=== PATIENT | male | born 1990 | race Caucasian/White ===

== ENCOUNTER 2020-05-13 14:14 | Outpatient (REF) | payer OTHER, SELFPAY | END 2020-05-13 14:15 | disposition home or self-care (01) | LOC: HO.HMGCLDS 14:14 | PROVIDERS: PCP Internal Medicine; Visit Provider Internal Medicine | DX: Z20.828 Contact with and (suspected) exposure to other viral communicable diseases (principal) | CPT/HCPCS: U0003 ==

== ENCOUNTER 2020-10-08 10:32 | Outpatient (REF) | payer SELFPAY ==
--- NOTE | ~2020-10-08 | US_ITS ---
EXAMINATION: US PELVIS, LIMITED/FOLLOW UP CLINICAL INFORMATION: Left groin hernia, question. COMPARISON: None TECHNIQUE: Limited imaging through left groin over palpable lump area was performed. FINDINGS: There is a rogel shaped large lymph node with internal echoes measuring 4.69 x 2.10 x 1.89 cm. It is approximately 0.47 cm deep to the skin and warrants a biopsy. There is no evidence of inguinal hernia. US/US pelvic limited IMPRESSION: Large complex echogenic rogel shaped atypical lymph node left groin. Warrants a biopsy. No additional lesions seen. There is no inguinal hernia.
== END 2020-10-08 10:33 | disposition home or self-care (01) ==
LOC: HO.HMGCX 10:32
PROVIDERS: Visit Provider Nurse Practitioner Family
DX: R10.2 Pelvic and perineal pain (principal); R10.30 Lower abdominal pain, unspecified
CPT/HCPCS: 76857

== ENCOUNTER 2020-11-21 09:03 | Outpatient (REF) | payer SELFPAY ==
[2020-11-21 10:57] LABS: Blood Urea Nitrogen 13 mg/dL (9-16); Estimated Glomerular Filt Rate > 60
== END 2020-11-21 09:04 | disposition home or self-care (01) ==
LOC: HO.LAB 09:03
PROVIDERS: PCP Internal Medicine; Visit Provider Surgery
DX: R59.0 Localized enlarged lymph nodes (principal)
CPT/HCPCS: 36415; 82565; 84520; 99202

== ENCOUNTER 2021-02-11 10:47 | Outpatient (REF) | payer OTHER, SELFPAY ==
[2021-02-11 14:15] LABS: Alanine Aminotransferase 22 U/L (0-40); Albumin Level 4.4 g/dL (3.5-5.0); Alkaline Phosphatase 71 U/L (39-117); Aspartate Amino Transferase 20 U/L (5-37); Bilirubin Direct 0.3 mg/dL (0.0-0.5); Bilirubin Total 0.8 mg/dL (0.0-1.0); Total Protein 7.2 g/dL (6.5-8.0)
== END 2021-02-11 10:48 | disposition home or self-care (01) ==
LOC: HO.HMGCLDS 10:47
PROVIDERS: PCP Internal Medicine; Visit Provider Podiatrist Foot Surgery
DX: B35.1 Tinea unguium (principal)
CPT/HCPCS: 36415; 80076

== ENCOUNTER 2021-03-03 08:57 | Outpatient (REF) | payer OTHER, SELFPAY ==
--- NOTE | ~2021-03-03 | CT_ITS ---
EXAMINATION: CT PELVIS WITH CONTRAST CLINICAL INFORMATION: Localized enlarged lymph nodes. COMPARISON: Ultrasound pelvis 10/08/2020 TECHNIQUE: Helical scanning was performed with submillimeter collimation through the pelvis with the use of oral contrast and during bolus intravenous injection of 100 mL of Omnipaque 350 intravenous contrast. Sagittal and coronal multiplanar 2-D reconstructions were obtained. This CT examination was performed using dose optimization techniques as appropriate, variously including the following: *Automated exposure control *Adjustment of mA and/or kV according to patient size (this includes techniques or standardized protocols for targeted exams where dose is matched to indication/reason for exam; i.e. extremities or head) *Use of iterative reconstruction technique DLP: 330 mGy-cm FINDINGS: PELVIS: There is scattered stool and gas seen in the colon without distention. No free fluid or pelvic mass seen. The bladder is nondistended. The prostate gland is mildly enlarged. There is no free fluid. There are several small lymph nodes visualized. The largest left inguinal lymph node measures 1.6 and 1.5 cm adjacent to each other. These measured jointly as 4.7 cm on the previous ultrasound exam. They have a normal appearance. OSSEOUS STRUCTURES: No lytic or sclerotic process seen. CT/CT pelvis w con IMPRESSION: No abnormal lymph nodes seen. Lymph nodes seen on the ultrasound were measured as 2 lymph nodes together.
[2021-03-03] MEDS: iohexoL 350 MG/ML 100 ML INFUS..BTL IV (09:35)
== END 2021-03-03 08:58 | disposition home or self-care (01) ==
LOC: HO.CT 08:57
PROVIDERS: PCP Internal Medicine; Visit Provider Surgery
DX: R59.0 Localized enlarged lymph nodes (principal)
CPT/HCPCS: 72193; Q9967

== ENCOUNTER → 2021-03-06 10:37 | Outpatient (BNVA) | payer OTHER, SELFPAY | PROVIDERS: PCP Internal Medicine; Visit Provider Surgery | DX: R59.0 Localized enlarged lymph nodes (principal) | CPT/HCPCS: 99212 ==

== ENCOUNTER 2021-06-12 07:26 | Outpatient (REF) | payer OTHER, SELFPAY ==
--- NOTE | ~2021-06-12 | MR_ITS ---
EXAMINATION: MR BRAIN WITHOUT CONTRAST CLINICAL INFORMATION: Chronic brain fog. Loss of thought and focus. Fatigue. COMPARISON: None. TECHNIQUE: Multiplanar, multisequence imaging of the brain was performed without contrast. FINDINGS: No diffusion abnormalities are identified to suggest an acute or subacute infarct. The ventricles are normal in size. No mass effect or midline shift is seen. No brain parenchymal signal abnormality is noted. No extra-axial fluid collections are seen. The brainstem and cerebellum are normal. The gradient refocused acquisition demonstrates no pathologic magnetic susceptibility artifact to indicate underlying acute or chronic blood products. The craniovertebral junction, marrow signal, and midline structures are normal. The major intracranial flow voids at the level of the [place] are preserved. The dural venous sinus flow voids are maintained. The mastoid air cells and paranasal sinuses are well aerated. MR/MR head/brain wo con IMPRESSION: No acute process. Normal MRI of the brain.
== END 2021-06-12 07:27 | disposition home or self-care (01) ==
LOC: HO.MRI 07:26
PROVIDERS: PCP Internal Medicine; Visit Provider Psychiatry & Neurology Neurology
DX: G37.9 Demyelinating disease of central nervous system, unspecified (principal)
CPT/HCPCS: 70551

== ENCOUNTER 2025-01-31 14:16 | Outpatient (AMB) | payer BC, SELFPAY ==
--- NOTE | 2025-01-31 14:18 | A.OFFVIS_ITS ---
Intake Visit Reasons: 6 mnts ADD Allergies No Known Allergies Allergy (Verified 01/31/25 14:18) Medication List - Last Reconciled 01/31/25 by Guerline Diallo CNP dextroamphetamine-amphetamine 30 mg 1 tab PO BID escitalopram oxalate 20 mg PO DAILY 90 days HPI Comments Details: He was doing okay. 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 Adderall helped with energy, ability to focus and stay on task. No work performance issues. If he does not take Adderall, he can feel the difference. Mood was okay until about 1 month ago, more down at times, no specific triggers. Low motivation. Stress was better. Around 2016, he started with fatigue and brain fog where he loses train of thought, spaces out at times, and cannot find the right words, and does not think his brain works properly. Falls asleep easily but sleep is disrupted as he wakes a few times. He did fairly well in his freshman year in high school and got through college without much problems. [facility] Medical History (Updated 01/31/25 @ 14:21 by Guerline Diallo CNP) Anxiety and depression Demyelinating disease ADD (attention deficit disorder) Depression, major, recurrent Surgical History [place] teeth extracted Family History Father CVD (cardiovascular disease) Myocardial infarction Depression Mother CVD (cardiovascular disease) Myocardial infarction HTN (hypertension) Brother No problems noted. Brother No problems noted. Brother No problems noted. Social History Alcohol intake: current Alcohol intake frequency: holidays/special occasions only Review of Systems Const Denies chills, Denies daytime sleepiness, Denies difficulty sleeping, Denies fatigue, Denies fever(s), Denies frequent falls, Denies headache(s), Denies increased appetite, Denies poor appetite, Denies snoring, Denies weakness, Denies weight gain and Denies weight loss Eyes Denies loss of vision ENT Denies vertigo, Denies dizziness, Denies headache(s) and Denies neck pain Card Denies chest pain at rest, Denies chest pain with activity, Denies syncope, Denies leg edema, Denies palpitations, Denies dyspnea and Denies dyspnea on exertion Resp Denies cough, Denies dyspnea, Denies dyspnea on exertion and Denies snoring GI Denies abdominal pain, Denies constipation, Denies heartburn, Denies diarrhea and Denies nausea Denies urinary frequency, Denies urinary incontinence and Denies urinary urgency Musc Denies abnormal gait, Denies back pain, Denies myalgias, Denies arthralgias, Denies neck pain, Denies numbness and Denies tingling Neuro Denies abnormal gait, Denies vertigo, Denies dizziness, Denies syncope, Denies frequent falls, Denies headache(s), Denies lack of coordination, Denies loss of vision, Reports memory loss, Denies numbness, Denies Other visual disturbances, Denies restless legs, Denies seizure-like activity, Denies tingling, Denies paresthesias, Denies tremor(s) and Denies weakness Psych Reports anxiety, Reports depression, Denies auditory hallucinations, Reports memory loss and Denies visual hallucinations Endo Denies fatigue and Denies palpitations Physical Exam Const Other: General Appearance:? normal, in no acute distress. Heart:? S1, S2 normal, no murmurs. Lungs:? clear anteriorly and posteriorly. Musculoskeletal:? normal. Extremities:? no edema. Psych:? alert, oriented, cognitive function intact, cooperative with exam. Neuro Other: Abnormal Neurological Findings:?none.? Mental Status: alert and oriented X 3. Normal attention, orientation, memory, and affect. Cranial Nerves: Pupils are equal, round, and reactive to light. External ocular muscles are intact. Visual cao are full, no ptosis. Face is symmetrical, no facial weakness or droop. Facial sensations are normal. Tongue protrudes in midline. Palate elevates symmetrically. Shoulder shrugging is normal Motor Examination: Normal muscle tone, bulk and strength. No atrophy or fasciculations. No drift of the extended upper extremities. DTR 2+. Plantars are flexor. Straight Leg [place] degrees. Sensory Exam: Normal light touch, temperature, pinprick, vibration, and joint- position sensations. Rhomberg sign is absent. Coordination: No ataxia. No titubation. Ygrvzf-lh-kisg, xfmm-pvux-unlo test, and rapid alternating movements were normal. Gait Exam: Within normal limits. Cerebellar Signs: Jseutv-df-rgtx and wkow-[id number]-kamq is normal. No dysdiadochokinesia. Extrapyramidal System: No tremor, rigidity with normal facial expressions. No bradykinesia. No bradyphrenia. Normal arm swing and posture. No propulsion or retropulsion. Speech: Normal. No dysphasia or dysarthria. Assessment & Plan Assessment & Plan (1) ADD (attention deficit disorder): Code(s): F98.8 - Other specified behavioral and emotional disorders with onset usually occurring in childhood and adolescence Category: Medical Qualifiers: Attention deficit type: unspecified type Qualified Code(s): F98.8 - Other specified behavioral and emotional disorders with onset usually occurring in childhood and adolescence Plan: Continue Adderall 30mg 1 tablet twice a day (2) Anxiety and depression: Code(s): F41.9 - Anxiety disorder, unspecified; F32.A - Depression, unspecified Category: Medical Plan: Stop escitalopram 20mg 1 tablet daily. Start bupropion 150mg 1 tablet daily. Plan Meds tried: paroxetine, sertraline, fluoxetine, citalopram, escitalopram Medications: New bupropion HCl SR (Wellbutrin SR) 150 mg PO DAILY 30 tabs 1RF 30 days dextroamphetamine-amphetamine 30 mg (Adderall) Partial Fill upon patient request. 30 mg PO BID 60 tabs 0RF 30 days Discontinued escitalopram oxalate Discontinued Reason: Doctor's Order 20 mg PO DAILY 90 days 90 tabs 1RF dextroamphetamine-amphetamine 30 mg Discontinued Reason: Order 1 tab PO BID 0RF Coding Level of Care Code Est Pt Level 4 (51195) Diagnoses Attention deficit disorder, unspecified type F98.8 Attention deficit type: unspecified type Anxiety and depression F41.9; F32.A
== END 2025-01-31 14:34 | disposition home or self-care (01) ==
LOC: HO.HSM 14:17
PROVIDERS: PCP Internal Medicine; Referring Provider Internal Medicine; Visit Provider Registered Nurse
DX: F98.8 Other specified behavioral and emotional disorders with onset usually occurring in childhood and adolescence (principal); F41.9 Anxiety disorder, unspecified; F32.A Depression, unspecified
CPT/HCPCS: 99214

== ENCOUNTER 2025-03-14 14:44 | Outpatient (AMB) | payer BC, SELFPAY ==
--- NOTE | 2025-03-14 14:49 | MHC.OFFVIS ---
Intake Visit Reasons: 6 weeks ADD, depression Allergies No Known Allergies Allergy (Verified 03/14/25 14:50) Medication List - Last Reconciled 03/14/25 by Guerline Diallo CNP bupropion HCl SR (Wellbutrin SR) 150 mg PO DAILY 30 days dextroamphetamine-amphetamine 30 mg (Adderall) 30 mg PO BID 30 days HPI Comments Details: He tried Wellbutrin for about a month but stopped medication about 1.5 weeks ago when refill had a bad smell to it. He felt a bit more tired with medication, otherwise he has not noticed any difference and did not think medication helped. Mood was stable, no SI/HI. Stress was about the same. Sleep was okay. 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 Adderall helped with energy, ability to focus and stay on task. No work performance issues. If he does not take Adderall, he can feel the difference. Around 2016, he started with fatigue and brain fog where he loses train of thought, spaces out at times, and cannot find the right words, and does not think his brain works properly. Falls asleep easily but sleep is disrupted as he wakes a few times. He did fairly well in his freshman year in high school and got through college without much problems. [facility] Medical History (Updated 01/31/25 @ 14:21 by Guerline Diallo CNP) Anxiety and depression Demyelinating disease ADD (attention deficit disorder) Depression, major, recurrent Surgical History [place] teeth extracted Family History Father CVD (cardiovascular disease) Myocardial infarction Depression Mother CVD (cardiovascular disease) Myocardial infarction HTN (hypertension) Brother No problems noted. Brother No problems noted. Brother No problems noted. Social History Alcohol intake: current Alcohol intake frequency: holidays/special occasions only Review of Systems Const Denies chills, Denies daytime sleepiness, Denies difficulty sleeping, Denies fatigue, Denies fever(s), Denies frequent falls, Denies headache(s), Denies increased appetite, Denies poor appetite, Denies snoring, Denies weakness, Denies weight gain and Denies weight loss Eyes Denies loss of vision ENT Denies vertigo, Denies dizziness, Denies headache(s) and Denies neck pain Card Denies chest pain at rest, Denies chest pain with activity, Denies syncope, Denies leg edema, Denies palpitations, Denies dyspnea and Denies dyspnea on exertion Resp Denies cough, Denies dyspnea, Denies dyspnea on exertion and Denies snoring GI Denies abdominal pain, Denies constipation, Denies heartburn, Denies diarrhea and Denies nausea Denies urinary frequency, Denies urinary incontinence and Denies urinary urgency Musc Denies abnormal gait, Denies back pain, Denies myalgias, Denies arthralgias, Denies neck pain, Denies numbness and Denies tingling Neuro Denies abnormal gait, Denies vertigo, Denies dizziness, Denies syncope, Denies frequent falls, Denies headache(s), Denies lack of coordination, Denies loss of vision, Reports memory loss, Denies numbness, Denies Other visual disturbances, Denies restless legs, Denies seizure-like activity, Denies tingling, Denies paresthesias, Denies tremor(s) and Denies weakness Psych Reports anxiety, Reports depression, Denies auditory hallucinations, Reports memory loss and Denies visual hallucinations Endo Denies fatigue and Denies palpitations Physical Exam Const Other: General Appearance:? normal, in no acute distress. Heart:? S1, S2 normal, no murmurs. Lungs:? clear anteriorly and posteriorly. Musculoskeletal:? normal. Extremities:? no edema. Psych:? alert, oriented, cognitive function intact, cooperative with exam. Neuro Other: Abnormal Neurological Findings:?none.? Mental Status: alert and oriented X 3. Normal attention, orientation, memory, and affect. Cranial Nerves: Pupils are equal, round, and reactive to light. External ocular muscles are intact. Visual cao are full, no ptosis. Face is symmetrical, no facial weakness or droop. Facial sensations are normal. Tongue protrudes in midline. Palate elevates symmetrically. Shoulder shrugging is normal Motor Examination: Normal muscle tone, bulk and strength. No atrophy or fasciculations. No drift of the extended upper extremities. DTR 2+. Plantars are flexor. Sensory Exam: Normal light touch, temperature, pinprick, vibration, and joint-position sensations. Rhomberg sign is absent. Coordination: No ataxia. No titubation. Rxryye-dl-slyr, qsgc-bdzt-huyj test, and rapid alternating movements were normal. Gait Exam: Within normal limits. Cerebellar Signs: Zkprni-vn-gtjx and xeda-ll-imuk is normal. No dysdiadochokinesia. Extrapyramidal System: No tremor, rigidity with normal facial expressions. No bradykinesia. No bradyphrenia. Normal arm swing and posture. No propulsion or retropulsion. Speech: Normal. No dysphasia or dysarthria. Assessment & Plan Assessment & Plan (1) ADD (attention deficit disorder): Code(s): F98.8 - Other specified behavioral and emotional disorders with onset usually occurring in childhood and adolescence Category: Medical Qualifiers: Attention deficit type: unspecified type Qualified Code(s): F98.8 - Other specified behavioral and emotional disorders with onset usually occurring in childhood and adolescence Plan: Continue Adderall 30mg 1 tablet twice a day (2) Anxiety and depression: Code(s): F41.9 - Anxiety disorder, unspecified; F32.A - Depression, unspecified Category: Medical Plan: Stop buproprion. He has tried multiple SSRIs in the past. Psychiatry referral placed. He denied any SI/HI. Crisis number offered, which he declined stating that he already has. Plan Meds tried: paroxetine, sertraline, fluoxetine, citalopram, escitalopram Orders: Referrals Psychiatry Referral F32.A - Depression, unspecified, F41.9 - Anxiety disorder, unspecified Medications: Refilled dextroamphetamine-amphetamine 30 mg (Adderall) Partial Fill upon patient request. 30 mg PO BID 60 tabs 0RF 30 days Discontinued bupropion HCl SR (Wellbutrin SR) Discontinued Reason: Doctor's Order 150 mg PO DAILY 30 days 30 tabs 1RF Coding Level of Care Code Est Pt Level 4 (56255) Diagnoses Attention deficit disorder, unspecified type F98.8 Attention deficit type: unspecified type Anxiety and depression F41.9; F32.A
== END 2025-03-14 15:04 | disposition home or self-care (01) ==
LOC: HO.HSM 14:45
PROVIDERS: PCP Internal Medicine; Visit Provider Registered Nurse
DX: F98.8 Other specified behavioral and emotional disorders with onset usually occurring in childhood and adolescence (principal); F41.9 Anxiety disorder, unspecified; F32.A Depression, unspecified
CPT/HCPCS: 99214